=== PATIENT | female | born 1955 | race Caucasian/White ===

== ENCOUNTER → 2017-11-04 13:38 | Outpatient (CLI) | payer OTHER, SELFPAY ==
--- NOTE | 2017-11-04 13:44 | RAD_ITS ---
STUDY: X-RAY - LEFT HAND, ATTENTION LEFT THUMB. REASON FOR EXAM: Female, 62 years old. Pain at the base of the thumb following injury. TECHNIQUE: 3 view(s) of the finger were obtained. COMPARISON: None. FINDINGS: Normal metacarpal head. Normal metacarpophalangeal joint. Normal proximal phalanx. Normal distal phalanx. Normal distal interphalangeal joint. RAD/Finger(s) Min 2 Views IMPRESSION: Normal x-ray examination of the finger. Electronically Signed: Pato Jennings MD at 14:03 EDT Tel [phone], Service support ,
== END ==
PROVIDERS: Family Provider Family Medicine; PCP Family Medicine; Visit Provider Physician Assistant Surgical
DX: S60.012A Contusion of left thumb without damage to nail, initial encounter (principal); X58.XXXA Exposure to other specified factors, initial encounter; Y93.9 Activity, unspecified; Y92.9 Unspecified place or not applicable; Y99.9 Unspecified external cause status
CPT/HCPCS: 73140

== ENCOUNTER 2018-10-18 16:32 | Emergency (ER) | payer OTHER, SELFPAY ==
--- NOTE | 2018-10-18 16:37 | NURSING ---
1627 STROKE ALERT CALLED 1631 PATIENT HERE
--- NOTE | 2018-10-18 16:38 | EKG12_ITS ---
Test Reason : NEURO Blood Pressure : / mmHG Vent. Rate : 061 BPM Atrial Rate : 061 BPM P-R Int : 176 ms QRS Dur : 090 ms QT Int : 424 ms P-R-T Axes : 061 064 -43 degrees QTc Int : 426 ms Normal sinus rhythm Nonspecific T wave abnormality Abnormal ECG Confirmed by ANDREI VEGA, ANICETO ([id number]), newspaper photo editor CHARLIE RIVAS ([id number]) on 10/21/2018 1:43:41 PM Referred By: LAN Confirmed By:ANICETO FORBES MD
--- NOTE | 2018-10-18 16:38 | CT_ITS ---
STUDY: CT BRAIN WITHOUT CONTRAST REASON FOR EXAM: Female, 63 years old. Right-sided weakness RADIATION DOSAGE (If Supplied By Facility): CTDIvol = ( 44.99 ) mGy, DLP = ( 745.49 ) mGycm TECHNIQUE: Transaxial CT imaging of the brain was performed without administration of intravenous contrast material. Individualized dose optimization techniques were used for this CT. COMPARISON: No relevant priors. FINDINGS: Normal soft tissue structures. Normal calvarium. There is hyperdense left middle cerebral artery sign. There is mild hypodensity left frontal and parietal lobe white matter. There is artifact versus a small hypodensity right centrum semiovale region. Normal brainstem. Normal cerebellum. There is no intracranial hemorrhage. Normal visualized paranasal sinuses. CT/Brain/Head without Contrast IMPRESSION: Hyperdense left MCA sign which has high association with acute MCA stroke Mild hypodensity left frontal parietal lobe white matter which could represent acute stroke, ischemic changes, MRI brain follow-up could be performed to further evaluate Mild ischemic changes versus artifact right centrum semiovale There is also called to and discussed with Physician: Stephanie Saucedo at approximately 4:59 PM 10/18/2018. N.B. : The above information has been verbally conveyed by Khoa Flood to Stephanie Saucedo MD, , on 10/18/2018 17:04:23 (ET). Electronically Signed: Khoa Flood, at 17:06 EDT Tel , Service support ,
--- NOTE | 2018-10-18 16:44 | NURSING ---
NEUROLOGY FOR DR MONTENEGRO
--- NOTE | 2018-10-18 16:47 | CT_ITS ---
STUDY: CTA OF THE BRAIN REASON FOR EXAM: Female, 63 years old. Acute stroke RADIATION DOSAGE (If Supplied By Facility): CTDIvol = ( 17.07 ) mGy, DLP = ( 634.79 ) mGycm TECHNIQUE: CT angiography was performed with a multi-detector CT scanner. Data acquisition was obtained from the skull base through the vertex following intravenous administration of 100CC IV Isovue 370. MIP images were reconstructed from the axial data set. Post-processing of the angiographic images was performed, with multiplanar reformation and 3D reconstruction. Individualized dose optimization techniques were used for this CT. COMPARISON: None. FINDINGS: Normal right petrous carotid arteries. Mild atheromatous narrowing right cavernous carotid artery with a normal supraclinoid bifurcation. There is occlusion of the left internal carotid artery.. Normal right A1 segments of the anterior cerebral artery. Normal left A1 segments of the anterior cerebral artery. Normal intact anterior communicating artery (ACOM). Normal bilateral A2 segments of the anterior cerebral arteries. Normal right M1 and M2 segments of the middle cerebral arteries, with a normal M1 bifurcation. There is minimal flow within the very proximal left middle cerebral artery likely due to collateral flow with more occlusion distally. There is some more distal collateral flow within the M3 segment. Normal right posterior communicating artery (PCOM). Normal left posterior communicating artery (PCOM). Normal bilateral vertebral arteries. Normal basilar artery with a normal basilar bifurcation. The visualized bilateral superior cerebellar (SCA) arteries are normal. Normal bilateral P1, P2 and visualized P3 segments of the posterior cerebral arteries. There is no demonstrated aneurysm of the [place]. IMPRESSION: Occlusion left internal carotid artery minimal flow within the very proximal left middle cerebral artery likely due to collateral flow with more occlusion distally. There is some more distal collateral flow within the M3 segment. Mild atheromatous narrowing of the cavernous and supraclinoid portions of the right internal carotid Electronically Signed: Khoa Flood, at 18:09 EDT Tel , Service support , STUDY: CTA NECK WITH CONTRAST REASON FOR EXAM: Female, 63 years old. CVA RADIATION DOSAGE (If Supplied By Facility): CTDIvol = ( 17.07 ) mGy, DLP = ( 634.79 ) mGycm TECHNIQUE: CT angiography with multi-detector data acquisition was performed from the aortic arch to the skull base following intravenous administration of 100CC IV Isovue 370. MIP images were reconstructed from the axial data set. Post-processing of the angiographic images was performed, with multiplanar reformation and 3D reconstruction. Individualized dose optimization techniques were used for this CT. COMPARISON: None. FINDINGS: AORTIC ARCH: Normal visualized aortic arch. Normal origins of the brachiocephalic, left common carotid, and left subclavian arteries. RIGHT CAROTID ARTERIES: There is mild atheromatous narrowing of the right common carotid artery, and proximal right internal carotid artery and carotid bulb with less than 50% diameter stenosis within the right internal and common carotid carotid arteries.. Normal origin of the right external carotid artery (ECA). LEFT CAROTID ARTERIES: The 60-70% atheromatous narrowing of the mid left common carotid artery. Moderate atherosclerotic plaque in the carotid bulb. There is occlusion of the left internal carotid distal to its origin. Normal origin of the left internal carotid (ICA) artery without a hemodynamically significant stenosis. Normal visualized cervical portion of the left internal carotid artery. Normal origin of the left external carotid artery (ECA). VERTEBRAL ARTERIES: Normal bilateral vertebral arteries. There is 1 cm hypodense right thyroid nodule. There is biapical pulmonary scarring and COPD changes. There are bilateral multiple less than 6 mm pulmonary nodules. There is a Pulmonary nodule in on the inferior field of view right upper lobe incompletely included on the study CT chest follow-up recommended there are multilevel degenerative changes of the thoracic spine. CT/CTA Head W/WO Contrast IMPRESSION: Approximately 60-70% atheromatous narrowing of the mid left common carotid artery, moderate atherosclerotic plaque within the left carotid bulb Occlusion of the left internal carotid artery distal to its origin Mild atheromatous narrowing of the right common carotid artery and proximal right internal carotid artery and carotid bulb with less than 50% diameter stenoses within the right internal and common carotid arteries Hypodense 1 cm right thyroid lobe nodule, thyroid ultrasound follow-up recommended Biapical pulmonary scarring and COPD changes Upper lobe pulmonary nodule, CT chest follow-up recommended Multilevel spondylosis cervical spine Electronically Signed: Khoa Flood, at 18:03 EDT Tel , Service support ,
--- NOTE | 2018-10-18 16:47 | CT_ITS ---
STUDY: CTA OF THE BRAIN REASON FOR EXAM: Female, 63 years old. Acute stroke RADIATION DOSAGE (If Supplied By Facility): CTDIvol = ( 17.07 ) mGy, DLP = ( 634.79 ) mGycm TECHNIQUE: CT angiography was performed with a multi-detector CT scanner. Data acquisition was obtained from the skull base through the vertex following intravenous administration of 100CC IV Isovue 370. MIP images were reconstructed from the axial data set. Post-processing of the angiographic images was performed, with multiplanar reformation and 3D reconstruction. Individualized dose optimization techniques were used for this CT. COMPARISON: None. FINDINGS: Normal right petrous carotid arteries. Mild atheromatous narrowing right cavernous carotid artery with a normal supraclinoid bifurcation. There is occlusion of the left internal carotid artery.. Normal right A1 segments of the anterior cerebral artery. Normal left A1 segments of the anterior cerebral artery. Normal intact anterior communicating artery (ACOM). Normal bilateral A2 segments of the anterior cerebral arteries. Normal right M1 and M2 segments of the middle cerebral arteries, with a normal M1 bifurcation. There is minimal flow within the very proximal left middle cerebral artery likely due to collateral flow with more occlusion distally. There is some more distal collateral flow within the M3 segment. Normal right posterior communicating artery (PCOM). Normal left posterior communicating artery (PCOM). Normal bilateral vertebral arteries. Normal basilar artery with a normal basilar bifurcation. The visualized bilateral superior cerebellar (SCA) arteries are normal. Normal bilateral P1, P2 and visualized P3 segments of the posterior cerebral arteries. There is no demonstrated aneurysm of the [place]. IMPRESSION: Occlusion left internal carotid artery minimal flow within the very proximal left middle cerebral artery likely due to collateral flow with more occlusion distally. There is some more distal collateral flow within the M3 segment. Mild atheromatous narrowing of the cavernous and supraclinoid portions of the right internal carotid Electronically Signed: Khoa Flood, at 18:09 EDT Tel , Service support , STUDY: CTA NECK WITH CONTRAST REASON FOR EXAM: Female, 63 years old. CVA RADIATION DOSAGE (If Supplied By Facility): CTDIvol = ( 17.07 ) mGy, DLP = ( 634.79 ) mGycm TECHNIQUE: CT angiography with multi-detector data acquisition was performed from the aortic arch to the skull base following intravenous administration of 100CC IV Isovue 370. MIP images were reconstructed from the axial data set. Post-processing of the angiographic images was performed, with multiplanar reformation and 3D reconstruction. Individualized dose optimization techniques were used for this CT. COMPARISON: None. FINDINGS: AORTIC ARCH: Normal visualized aortic arch. Normal origins of the brachiocephalic, left common carotid, and left subclavian arteries. RIGHT CAROTID ARTERIES: There is mild atheromatous narrowing of the right common carotid artery, and proximal right internal carotid artery and carotid bulb with less than 50% diameter stenosis within the right internal and common carotid carotid arteries.. Normal origin of the right external carotid artery (ECA). LEFT CAROTID ARTERIES: The 60-70% atheromatous narrowing of the mid left common carotid artery. Moderate atherosclerotic plaque in the carotid bulb. There is occlusion of the left internal carotid distal to its origin. Normal origin of the left internal carotid (ICA) artery without a hemodynamically significant stenosis. Normal visualized cervical portion of the left internal carotid artery. Normal origin of the left external carotid artery (ECA). VERTEBRAL ARTERIES: Normal bilateral vertebral arteries. There is 1 cm hypodense right thyroid nodule. There is biapical pulmonary scarring and COPD changes. There are bilateral multiple less than 6 mm pulmonary nodules. There is a Pulmonary nodule in on the inferior field of view right upper lobe incompletely included on the study CT chest follow-up recommended there are multilevel degenerative changes of the thoracic spine. CT/CTA Neck W/WO Contrast IMPRESSION: Approximately 60-70% atheromatous narrowing of the mid left common carotid artery, moderate atherosclerotic plaque within the left carotid bulb Occlusion of the left internal carotid artery distal to its origin Mild atheromatous narrowing of the right common carotid artery and proximal right internal carotid artery and carotid bulb with less than 50% diameter stenoses within the right internal and common carotid arteries Hypodense 1 cm right thyroid lobe nodule, thyroid ultrasound follow-up recommended Biapical pulmonary scarring and COPD changes Upper lobe pulmonary nodule, CT chest follow-up recommended Multilevel spondylosis cervical spine Electronically Signed: Khoa Flood, at 18:03 EDT Tel , Service support ,
[2018-10-18 16:50] VITALS: BP 120/63; PULSE 60; RESP 18; TEMP 37; O2SAT 100; BMI 25.9
[2018-10-18 17:05] VITALS: BP 99/73; PULSE 63; RESP 18; O2SAT 99
--- NOTE | 2018-10-18 17:15 | RAD_ITS ---
STUDY: X-RAY CHEST REASON FOR EXAM: Female, 63 years old. Short of breath TECHNIQUE: Portable chest COMPARISON: None. FINDINGS: The lungs are clear and expanded. There is no demonstrated pleural abnormality. Normal size heart. Normal mediastinum and marry. Normal visualized pulmonary arteries. Normal visualized aortic arch and descending thoracic aorta. Normal visualized thoracic spine. Normal visualized ribs, clavicles, and shoulders. There is no demonstrated abnormality of the visualized soft tissue structures of the upper abdomen. RAD/Chest 1 View IMPRESSION: Normal x-ray examination of the chest. Electronically Signed: Khoa Flood, at 18:58 EDT Tel , Service support ,
--- NOTE | 2018-10-18 17:15 | ED.VISSUMM ---
- ER Visit Summary Date of Service: 10/18/18 Chief Complaint: Difficulty speaking History of Present Illness: The patient is a 63 F presenting with difficulty speaking. This occurred 25 minutes prior to arrival. Family states that she was doing well and all of a sudden could not speak at 405pm. EMS was called. On EMS arrival she had right arm drift and aphasia. Patient has a history of hypertension, hypercholesteremia, COPD, hypothyroidism. She is not on anticoagulants. No recent surgeries. No history of hemorrhagic stroke. Physical Examination: Vitals are stable. Blood pressure 120/63. Patient is afebrile. Alert no acute distress. HEENT exam is unremarkable. Neck is supple. Lungs are clear and equal bilaterally. Heart is regular rate and rhythm. Abdomen is soft nontender nondistended. Extremities are unremarkable. Skin is warm and dry. NIH 4: 2 for LOC questions, 2 for best language Remainder of exam is unremarkable. Emergency Department Course and Treatment: CT head shows hyperdense left MCA sign which has high association with acute MCA stroke Mild hypodensity left frontal parietal lobe white matter which could represent acute stroke, ischemic changes, MRI brain follow-up could be performed to further evaluate Mild ischemic changes versus artifact right centrum semiovale. TPA was started after discussion with Dr. Serrano. CTA head and neck was obtained and shows left ICA and MCA occlusion. Read by Dr. Serrano. He recommends transfer to tertiary care center. EKG is sinus rate of 61. CBC, chemistries unremarkable. INR is 1.0. Troponin is negative. Discussed with [facility] for transfer per patient's family request. Patient will be transferred to [facility]. Disposition: Transfer [facility] Impression: Acute CVA This note was generated with [employer] dictation software. It may contain incorrect words, spelling, and punctuation that were not noted in review of the chart prior to signing ED Disposition - Plan for ED Patient: Referrals: Bipin Goldsmith MD [Primary Care Provider] -
[2018-10-18 17:18] LABS: Absolute Neutrophil Count 6.2 X10^3/uL (2.0-7.7); Basophil# 0.02 X10^3/uL; Basophil% 0.2 % (0-1); Eosinophil# 0.34 X10^3/uL; Eosinophils% 3.4 % (0-5); Hematocrit 40.3 % (37-47); Lymphocyte % 28.3 % (19-41); Mean Corp Hgb Conc 34.7 g/gl (32-36); Mean Corpuscular Hgb 33.3 pg (27.0-32.0); Mean Corpuscular Volume 95.7 fL (81-99); Mean Platelet Vol. 10.1 fl (6.2-12.0); Monocyte# 0.54 X10^3/uL; Monocyte% 5.5 % (0-10); Neutrophil # 6.17 X10^3/uL (2.7-7.7); Neutrophil % 62.5 % (47-70); Platelet Count 256 K/mm3 (150-450); RBC Distribution Width CV 12.9 % (11.6-14.6); RBC Distribution Width SD 45.1 fl (35.1-43.9); Red Blood Count 4.21 M/mm3 (4.2-5.4); White Blood Count 9.9 K/mm3 (4.4-11.0)
--- NOTE | 2018-10-18 17:18 | NURSING ---
CALLING [facility] FOR TRANSFER.
--- NOTE | 2018-10-18 17:19 | NURSING ---
CALLING [facility]
[2018-10-18 17:20] LABS: POSITIVE COUNT NO; POSITIVE DIFFERENTIAL NO; POSITIVE MORPHOLOGY NO
[2018-10-18 17:26] LABS: Prothrombin Time (Protime)PT. 13.1 SECONDS (11.7-14.9)
[2018-10-18 17:27] LABS: Partial Thromboplast Time 28.8 Seconds (24.1-36.2)
[2018-10-18 17:30] VITALS: BP 128/61; PULSE 62; RESP 12; O2SAT 99
[2018-10-18 17:30] LABS: Anion Gap 6 (5-15); BUN 7 mg/dL (7-18); BUN/Creat Ratio 9.6 RATIO (10-20); Calcium,Total 8.3 mg/dL (8.5-10.1); Chloride 103 mmol/L (98-107); Creatinine, Serum 0.73 mg/dL (0.55-1.02); EST Glomerular Filtration Rate 87 mL/min (>60); Est Glom Filt Rate - Afr Amer 105 mL/min (>60); Estimated Creatinine Clearance 66.95 ml/min; Glucose 85 mg/dL (74-106); Potassium 3.2 mmol/L (3.5-5.1); Sodium Level 139 mmol/L (136-145)
[2018-10-18] MEDS: 0.9% Normal Saline 1,000 ML 100 ML IV (17:30)
[2018-10-18 17:45] VITALS: BP 133/70; PULSE 62; RESP 16; TEMP 36.9; O2SAT 99
[2018-10-18 18:00] VITALS: BP 132/77; PULSE 62; RESP 18; O2SAT 98
[2018-10-18 18:22] VITALS: BP 132/77
--- NOTE | 2018-10-18 18:31 | ED.RN ---
1718 pt shaking head yes to on blood thinners and having irregular heart rate. pt shaking head yes to every questions ex: are you able to speak?. attempting to verify blood thinner for TPA use. Cherry TERRELL called [facility] no anticoagulation noted in last 5 yrs. 1720 pt back from CTA. stock catheter placed. second iv attemptsx2 failed attempts. 1728 2nd iv established. 1602 [facility] arrived and assumed care at 1605. NIH completed at bedside with [facility] physician. tpa transported with patient. 1612 [facility] assumed full care of patient at this time. RN call report to anton at [facility].
[2018-10-19 09:41] LABS: Bedside Glucose 89 mg/dL (70-110)
== END 2018-10-18 18:17 | disposition short-term general hospital (02) ==
PROVIDERS: Emergency Provider Emergency Medicine; Family Provider Family Medicine; PCP Family Medicine
DX: I63.512 Cerebral infarction due to unspecified occlusion or stenosis of left middle cerebral artery (principal); I63.232 Cerebral infarction due to unspecified occlusion or stenosis of left carotid arteries; R47.01 Aphasia; G83.21 Monoplegia of upper limb affecting right dominant side; R29.704 NIHSS score 4; J44.9 Chronic obstructive pulmonary disease, unspecified; I10 Essential (primary) hypertension; E78.00 Pure hypercholesterolemia, unspecified; E03.9 Hypothyroidism, unspecified; Z72.0 Tobacco use; Z79.899 Other long term (current) drug therapy
CPT/HCPCS: 70450; 70496; 70498; 71045; 80048; 82962; 84484; 85025; 85610; 85730; 93005; 96361; 96374; 99285; J2997; J7030; J7050; Q9967; A4216; J3490

== ENCOUNTER → 2018-11-20 20:00 | Outpatient (CLI) | payer OTHER, SELFPAY ==
[2018-11-20] MEDS: Zolpidem Tartrate 5 MG Tablet PO (21:55)
== END ==
PROVIDERS: Family Provider Family Medicine; PCP Family Medicine; Referring Provider Family Medicine; Visit Provider Family Medicine
DX: G47.10 Hypersomnia, unspecified (principal); R06.83 Snoring; Z86.73 Personal history of transient ischemic attack (TIA), and cerebral infarction without residual deficits
CPT/HCPCS: 95810

== ENCOUNTER 2019-01-02 00:56 | Emergency (ER) | payer OTHER, SELFPAY ==
[2018-12-04 09:49] VITALS: BMI 25.8
[2019-01-02] VITALS (7 sets, daily range): BP systolic 111–210; BP diastolic 47–102; PULSE 62–87; RESP 13–20; TEMP 36.9; O2SAT 96–100; BMI 28.2
--- NOTE | 2019-01-02 01:00 | ED.RN ---
Addendum entered by Maricruz Cole 01/02/19 01:39: suction at bedside. attempting iv access. new orders. will continue to monitor. Original Note: patient with focal seizure. patient with right facial and right leg twitch. dr. rutledge to bedside.
--- NOTE | 2019-01-02 01:05 | CT_ITS ---
STUDY: CT BRAIN WITHOUT CONTRAST REASON FOR EXAM: Female, 63 years old. Seizure facial twitching weakness recent stroke RADIATION DOSAGE (If Supplied By Facility): CTDIvol = ( 44.99 ) mGy, DLP = ( 1625.96 ) mGycm TECHNIQUE: Transaxial CT imaging of the brain was performed without administration of intravenous contrast material. Additional artifact limits this study. Individualized dose optimization techniques were used for this CT. COMPARISON: October 18, 2018 CT head FINDINGS: Normal soft tissue structures. Normal calvarium. There is mild cerebral atrophy with widening of the extra-axial spaces and ventricular dilatation. Focal low attenuation within the medial aspect of the left side temporal lobe as well as extending into the caudate and left side basal ganglia. There is subcortical low attenuation compatible with evolving left temporal ischemic change. Normal brainstem. There is mild cerebellar atrophy. There is no intracranial hemorrhage. There are no findings of an acute ischemic infarction. Normal visualized paranasal sinuses. CT/Brain/Head without Contrast IMPRESSION: Visualization of low-attenuation and early encephalomalacia within the left temporal and basal ganglia compatible with recent and probably evolving brain parenchyma status post infarct. No evidence of new or acute hemorrhage. Electronically Signed: Corry Elliott MD at 2:41 EDT Tel , Service support ,
[2019-01-02 01:06] LABS: Bedside Glucose 108 mg/dL (70-110)
--- NOTE | 2019-01-02 01:06 | ED.VIS.GEN ---
History of Present Illness Chief Complaint: Neuro S/Sx Informant: Patient, Family Narrative: She stated her face started twitching on the right side uncontrollably 15 minutes ago. She felt dizzy beforehand. She was seen 3 weeks ago and transferred to [facility] for a left-sided stroke. She had a stent placed in her left carotid. She was just discharged from [facility] a few days ago. She does not have any residual neurologic deficits. She is on no seizure medications. She is never had a seizure before. It is only involving her face. She was able to ambulate in here. Denies any other complaints. Current severity is moderate. Worsened by nothing. Relieved by nothing. No home treatment. She was discharged to stop her blood pressure medications. Because her blood pressures were low in the hospital. She restarted her blood pressure medicines today however - Past Medical History (1) Contusion of left thumb without damage to nail, initial encounter Status: Acute (2) Dyspnea on exertion Status: Acute (3) MANOHAR (obstructive sleep apnea) Status: Acute Comment: AHI 29.9 events per hour on original polysomnogram (4) Strain of thumb, left Status: Acute (5) COPD (chronic obstructive pulmonary disease) Status: Chronic (6) Nicotine addiction Status: Chronic Past Medical History - Allergies and Home Meds Allergies/Adverse Reactions: Allergies No Known Allergies Allergy (Verified 01/02/19 01:02) Primary Care Physician: Bipin Goldsmith MD [Primary Care Provider] - Prior records reviewed: Yes Past Medical History: - - See problem list, stroke Surgical History: - - Reviewed Smoking Status: Former smoker Alcohol: None Drugs: None Review of Systems General: Denies: Chills, Fever, Sweats Eyes: Denies: Visual changes - bilaterally, Diplopia ENT: Denies: Rhinorrhea, Sore throat Cardiovascular: Denies: Chest pain, Palpitations Respiratory: Denies: Dyspnea, Cough, Dyspnea on exertion Gastrointestinal: Denies: Abdominal pain, Nausea, Vomiting, Diarrhea, Melena, Hematochezia Genitourinary: Denies: Dysuria, Hematuria, Frequency Musculoskeletal: Denies: Back pain, Extremity Pain Skin: Denies: Rash, Wounds Neurological: Denies: Headache, Weakness, Parasthesia, Numbness Physical Exam Vital Signs/Narrative: Vital Signs Temp Pulse Resp BP Pulse Ox 01/02/19 01:03 20 H 01/02/19 00:57 98.5 F 87 18 210/102 H 96 General: Well nourished, Well developed, No Acute Distress Head: Normocephalic, Atraumatic Eyes: Perrl, EOMI ENT: Moist mucous membranes, No rhinorrhea Neck: Supple, Nontender Cardiovascular: Regular rate, Regular rhythm, No murmurs Respiratory: No distress, CTA bilaterally, Chest nontender Abdomen: Soft, Nontender, Nondistended, Normal bowel sounds Back: Nontender, Normal Inspection Extremities: Nontender, No edema Skin: Normal color, No rash Neurological: Alert, Oriented x3, Normal Strength, Normal Sensation, - - Patient having a focal seizure on the right side of her face. This involves her upper and lower face. Positive twitching. Negative for: Cranial nerves II-XII grossly intact Psychological: Normal affect, Normal Mood Diagnostic/Tx/Re-eval - Medical Decision Making IV established patient given Ativan immediately. Given IV fluids. Lab work and CT had obtained lab work shows nothing acute. CT shows old stroke area with no acute hemorrhage or abnormality. Patient given a dose of Versed initially IM because we could not establish an IV. Then given sequential doses of Ativan and she still had mild right facial seizure. Patient given a dose of Dilantin. This stopped her seizures. She is sleeping comfortably. She is on nasal cannula oxygen due to the fact that she is sedated with medication. At this time she had a post stroke seizure. She will be referred to tertiary care hospital. We do not have neurology coverage. Discussed with hospitalist - Critical Care Time Critical care time (excluding procedures): 30-74 minutes ED Disposition - Plan for ED Patient: Diagnosis: Seizure Referrals: Bipin Goldsmith MD [Primary Care Provider] -
[2019-01-02] MEDS: Midazolam 2 MG/2 ML Syringe IM (01:12)
[2019-01-02] MEDS: LORazepam 2 MG/ML Syringe IV ×3 (01:17→01:34)
--- NOTE | 2019-01-02 01:26 | ED.RN ---
patient continues to seize. dr. rutledge at bedside. new orders. will continue to monitor.
[2019-01-02 01:28] LABS: Absolute Lymphocyte Count 2.97 X10^3/uL (0.83-4.51); Absolute Neutrophil Count 5.4 X10^3/uL (2.0-7.7); Basophil# 0.04 X10^3/uL; Basophil% 0.4 % (0-1); Eosinophil# 0.24 X10^3/uL; Eosinophils% 2.5 % (0-5); Hematocrit 34.7 % (37-47); Hemoglobin 11.8 g/dL (12.0-15.0); Lymphocyte # 2.97 X10^3/ul (4.0); Lymphocyte % 31.4 % (19-41); Mean Corpuscular Hgb 32.7 pg (27.0-32.0); Mean Corpuscular Volume 96.1 fL (81-99); Mean Platelet Vol. 9.4 fl (6.2-12.0); Monocyte% 8.4 % (0-10); NRBC Flagged by Analyzer 0 % (0-5); Neutrophil # 5.37 X10^3/uL (2.7-7.7); Neutrophil % 56.8 % (47-70); Platelet Count 231 K/mm3 (150-450); RBC Distribution Width CV 12.4 % (11.6-14.6); RBC Distribution Width SD 42.8 fl (35.1-43.9); Red Blood Count 3.61 M/mm3 (4.2-5.4); White Blood Count 9.5 K/mm3 (4.4-11.0)
[2019-01-02 01:33] LABS: International Normalized Ratio 1.1; Prothrombin Time (Protime)PT. 13.6 SECONDS (11.7-14.9)
[2019-01-02 01:34] LABS: Partial Thromboplast Time 29.5 Seconds (24.1-36.2)
[2019-01-02 01:44] LABS: Anion Gap 6 (5-15); BUN 4 mg/dL (7-18); BUN/Creat Ratio 4.6 RATIO (10-20); Calcium,Total 8.7 mg/dL (8.5-10.1); Chloride 105 mmol/L (98-107); Creatinine, Serum 0.87 mg/dL (0.55-1.02); EST Glomerular Filtration Rate 70 mL/min (>60); Est Glom Filt Rate - Afr Amer 85 mL/min (>60); Estimated Creatinine Clearance 53.71 ml/min; Glucose 118 mg/dL (74-106); Sodium Level 141 mmol/L (136-145)
--- NOTE | 2019-01-02 02:15 | ED.RN ---
SEIZURE STOPPED. OXYGEN SATURATION REMAINED ABOVE 95%.
--- NOTE | 2019-01-02 03:47 | ED.RN ---
spoke with martha lopez at this time to sent up transport and acceptance of patient
--- NOTE | 2019-01-02 04:33 | ED.RN ---
REPORT CALLED TO XANDER BALDERAS
--- NOTE | 2019-01-02 04:51 | ED.RN ---
EMS IN ED.
== END 2019-01-02 04:55 | disposition short-term general hospital (02) ==
PROVIDERS: Emergency Provider Emergency Medicine; Family Provider Family Medicine; PCP Family Medicine
DX: R56.9 Unspecified convulsions (principal); Z86.73 Personal history of transient ischemic attack (TIA), and cerebral infarction without residual deficits; J44.9 Chronic obstructive pulmonary disease, unspecified; G47.33 Obstructive sleep apnea (adult) (pediatric); Z79.899 Other long term (current) drug therapy; Z87.891 Personal history of nicotine dependence
CPT/HCPCS: 70450; 80048; 82962; 85025; 85610; 85730; 96365; 96372; 96375; 99285; J7040; A4216

== ENCOUNTER → 2019-03-04 11:06 | Outpatient (CLI) | payer OTHER, SELFPAY ==
[2019-01-02 04:09] VITALS: BMI 28.2
[2019-03-04 11:44] LABS: Hematocrit 32.8 % (37-47); Hemoglobin 11.7 g/dL (12.0-15.0); Mean Corp Hgb Conc 35.7 g/dL (32-36); Mean Corpuscular Hgb 30.7 pg (27.0-32.0); Mean Corpuscular Volume 86.1 fL (81-99); Mean Platelet Vol. 9.2 fl (6.2-12.0); Platelet Count 210 K/mm3 (150-450); RBC Distribution Width CV 11.9 % (11.6-14.6); RBC Distribution Width SD 37.5 fl (35.1-43.9); Red Blood Count 3.81 M/mm3 (4.2-5.4); White Blood Count 5.1 K/mm3 (4.4-11.0)
[2019-03-04 12:35] LABS: ALB/GLOB Ratio 1.3 RATIO (0.9-2.4); AST(SGOT) 19 U/L (15-37); Alanine Aminotransfer ALT/SGPT 29 U/L (13-56); Albumin, Serum 3.9 g/dL (3.2-5.0); Alkaline Phosphatase 86 U/L (45-117); Anion Gap 8 (5-15); BUN 3 mg/dL (7-18); BUN/Creat Ratio 5.2 RATIO (10-20); Calcium,Total 8.8 mg/dL (8.5-10.1); Chloride 81 mmol/L (98-107); Creatinine, Serum 0.57 mg/dL (0.55-1.02); EST Glomerular Filtration Rate 114 mL/min (>60); Est Glom Filt Rate - Afr Amer 138 mL/min (>60); Globulin 3.1 g/dL (2.2-4.2); Glucose 92 mg/dL (74-106); Potassium 3.5 mmol/L (3.5-5.1); Sodium Level 117 mmol/L (136-145)
[2019-03-07 13:28] LABS: KEPPRA (LEVETIRACETAM) 64.7 ug/mL (10.0-40.0); Trileptal-Oxcarbazepine 18 ug/mL (10-35)
== END ==
PROVIDERS: Family Provider Family Medicine; PCP Family Medicine
DX: G40.909 Epilepsy, unspecified, not intractable, without status epilepticus (principal)
CPT/HCPCS: 36415; 80053; 80177; 82542; 85027

== ENCOUNTER 2019-04-29 17:20 | Emergency (ER) | payer OTHER, SELFPAY ==
[2019-01-02 04:09] VITALS: BMI 28.2
[2019-04-29] VITALS (8 sets, daily range): BP systolic 169–226; BP diastolic 89–123; PULSE 73–90; RESP 12–22; TEMP 37.1; O2SAT 94–99; BMI 26.2
--- NOTE | 2019-04-29 17:28 | CT_ITS ---
STUDY: CT BRAIN WITHOUT CONTRAST REASON FOR EXAM: Female, 63 years old. CVA, aphasia, patient had a seizure when coming into CT room. RADIATION DOSAGE (If Supplied By Facility): CTDIvol = ( 44.99 ) mGy, DLP = ( 812.98 ) mGycm TECHNIQUE: Transaxial CT imaging of the brain was performed without administration of intravenous contrast material. Individualized dose optimization techniques were used for this CT. COMPARISON: Head CT dated January 02, 2019 FINDINGS: No change in focal volume loss of the left basal ganglia, frontal lobe, and temporal region either from previous infarction or trauma. Normal size ventricles and extra-axial spaces for the patient's age. Normal white matter tracts of the cerebral hemispheres. Normal thalami. Normal brainstem. Normal cerebellum. There is no intracranial hemorrhage. There are no findings of an acute ischemic infarction. Normal visualized paranasal sinuses. CT/Brain/Head without Contrast IMPRESSION: 1. No change in focal volume loss of the left basal ganglia, frontal lobe, and temporal region either from previous infarction or trauma. N.B. : The above information has been verbally conveyed by Fitz Carrillo MD to Dr. Jose R Moise MD, on 04/29/2019 18:28:31 (ET). Electronically Signed: Fitz Carrillo MD at 18:29 EST , Service support ,
--- NOTE | 2019-04-29 17:28 | CT_ITS ---
We are attempting to reach an attending provider to discuss findings. An addendum with communication details will be sent when the communication is complete. STUDY: CTA HEAD AND NECK WITH CONTRAST REASON FOR EXAM: Female, 63 years old. Stroke RADIATION DOSAGE (If Supplied By Facility): CTDIvol = ( 19.43 ) mGy, DLP = ( 657.39 ) mGycm TECHNIQUE: CT angiography was performed with a multi-detector CT scanner. Data acquisition was obtained from the skull base through the vertex following intravenous administration of IV Isovue 370 100CC. MIP images were reconstructed from the axial data set. Post-processing of the angiographic images was performed, with multiplanar reformation and 3D reconstruction. Individualized dose optimization techniques were used for this CT. COMPARISON: No relevant priors. FINDINGS: Normal bilateral petrous carotid arteries. Mildly calcified right cavernous carotid artery with a normal supraclinoid bifurcation. Mildly calcified left cavernous carotid artery with mild luminal narrowing, less than 50%. Normal right A1 segments of the anterior cerebral artery. Normal left A1 segments of the anterior cerebral artery. Normal intact anterior communicating artery (ACOM). Normal bilateral A2 segments of the anterior cerebral arteries. Normal right M1 and M2 segments of the middle cerebral arteries, with a normal M1 bifurcation. Normal left M1 and M2 segments of the middle cerebral arteries, with a normal M1 bifurcation. Normal right posterior communicating artery (PCOM). Normal left posterior communicating artery (PCOM). Normal bilateral vertebral arteries. Normal basilar artery with a normal basilar bifurcation. The visualized bilateral superior cerebellar (SCA) arteries are normal. Normal bilateral P1, P2 and visualized P3 segments of the posterior cerebral arteries. There is no demonstrated aneurysm of the [place]. AORTIC ARCH: Normal visualized aortic arch. Normal origins of the brachiocephalic, left common carotid, and left subclavian arteries. RIGHT CAROTID ARTERIES: Normal right common carotid artery (CCA). Mild atherosclerotic calcifications of the right common carotid bulb. Normal origin of the right internal carotid (ICA) artery without a hemodynamically significant stenosis. Normal visualized cervical portion of the right internal carotid artery. Normal origin of the right external carotid artery (ECA). LEFT CAROTID ARTERIES: Intraluminal thrombus is noted within the left common carotid artery (CCA) causing 60-70% luminal stenosis. A patent stent is noted extending from the distal common carotid artery through the proximal segment of the left internal carotid artery. Normal origin of the left internal carotid (ICA) artery without a hemodynamically significant stenosis. Normal visualized cervical portion of the left internal carotid artery. Normal origin of the left external carotid artery (ECA). VERTEBRAL ARTERIES: Normal bilateral vertebral arteries. Fibrotic changes of the visualized lungs. CT/CTA Head AND Neck W/ Contrast IMPRESSION: Intraluminal thrombus of the left common carotid artery with approximately with 60-60% luminal narrowing. Patent stent is noted extending from the left common carotid to the left internal carotid artery. Atherosclerotic calcifications at the the right carotid bulb without hemodynamically significant stenosis. Atherosclerotic calcifications with mild luminal narrowing at the cavernous segment of the left internal carotid artery. Electronically Signed: Colten Gill DO at 18:24 EST Tel [phone], Service support ,
--- NOTE | 2019-04-29 17:28 | EKG12_ITS ---
Test Reason : Blood Pressure : / mmHG Vent. Rate : 097 BPM Atrial Rate : 097 BPM P-R Int : 184 ms QRS Dur : 100 ms QT Int : 390 ms P-R-T Axes : 062 076 056 degrees QTc Int : 495 ms Normal sinus rhythm Nonspecific ST abnormality Prolonged QT Abnormal ECG Confirmed by VALERIE VEGA, ISAAK ([id number]), editorial manager CIERRA GRANT ([id number]) on 05/03/2019 9:25:36 AM Referred By: MONICA Confirmed By:JUAN DAVID PADILLA MD
[2019-04-29] MEDS: LORazepam 2 MG/ML Syringe IV (17:38)
[2019-04-29 17:39] LABS: Absolute Lymphocyte Count 2.49 X10^3/uL (0.83-4.51); Absolute Neutrophil Count 4.6 X10^3/uL (2.0-7.7); Basophil# 0.04 X10^3/uL; Basophil% 0.5 % (0-1); Eosinophil# 0.22 X10^3/uL; Eosinophils% 2.7 % (0-5); Hematocrit 35.1 % (37-47); Hemoglobin 12.1 g/dL (12.0-15.0); Lymphocyte # 2.49 X10^3/ul (4.0); Lymphocyte % 30.1 % (19-41); Mean Corp Hgb Conc 34.5 g/dL (32-36); Mean Corpuscular Hgb 30.5 pg (27.0-32.0); Mean Corpuscular Volume 88.4 fL (81-99); Mean Platelet Vol. 8.8 fl (6.2-12.0); Monocyte# 0.85 X10^3/uL; Monocyte% 10.3 % (0-10); NRBC Flagged by Analyzer 0 % (0-5); Neutrophil # 4.63 X10^3/uL (2.7-7.7); Neutrophil % 55.8 % (47-70); Platelet Count 231 K/mm3 (150-450); RBC Distribution Width CV 13.2 % (11.6-14.6); RBC Distribution Width SD 43.3 fl (35.1-43.9); Red Blood Count 3.97 M/mm3 (4.2-5.4); White Blood Count 8.3 K/mm3 (4.4-11.0)
--- NOTE | 2019-04-29 17:40 | CM.ED ---
SOCIAL WORK REASON FOR REFERRAL: STROKE ALERT RESPONDED TO STROKE ALERT. PATIENT WAS IN CT UPON ARRIVAL. PATIENT'S , DAUGHTER AND GRANDDAUGHTER PRESENT. EMOTIONAL SUPPORT PROVIDED AND ALL QUESTIONS ANSWERED. Lotus GAMBLE MSW, [employer] LAYER HELPER.
--- NOTE | 2019-04-29 17:51 | ED.RN ---
1730 - PT SEIZING IN CT 1738 - 2MG IV ATIVAN GIVEN IN CT 1738 - PULSE OX 78% STARTING TO BAG PATIENT 1739 - PULSE OX 94% 1740 - BREATHING ON OWN. PLACED ON O2 VIA N/C 6L/MIN 1744 BP 214/112 1750 BP 1958/101 1753 - RETURNED TO ER ROOM 2
[2019-04-29 17:52] LABS: Partial Thromboplast Time 27.4 Seconds (24.1-36.2); Prothrombin Time (Protime)PT. 12.7 SECONDS (11.7-14.9)
--- NOTE | 2019-04-29 17:56 | RAD_ITS ---
STUDY: X-RAY CHEST REASON FOR EXAM: Female, 63 years old. Stroke, seizure TECHNIQUE: Frontal view COMPARISON: October 18, 2018 FINDINGS: The lungs are expanded. Bilateral diffuse interstitial disease. Possible mild right basilar patchy infiltrate. Normal size heart. Normal mediastinum and marry. Normal visualized pulmonary arteries. Normal visualized aortic arch and descending thoracic aorta. Normal visualized thoracic spine. Normal visualized ribs, clavicles, and shoulders. There is no demonstrated abnormality of the visualized soft tissue structures of the upper abdomen. RAD/Chest 1 View IMPRESSION: Diffuse interstitial prominence bilaterally. Possible right basilar infiltrate. Electronically Signed: Colten Gill DO at 18:31 EST Tel [phone], Service support ,
[2019-04-29] MEDS: levETIRAcetam IV 1,000 MG/100 ML BAG 400 MG IV (17:57)
[2019-04-29 18:04] LABS: Anion Gap 8 (5-15); BUN 5 mg/dL (7-18); BUN/Creat Ratio 8.3 RATIO (10-20); Calcium,Total 8.6 mg/dL (8.5-10.1); Chloride 89 mmol/L (98-107); Creatinine, Serum 0.61 mg/dL (0.55-1.02); EST Glomerular Filtration Rate 107 mL/min (>60); Est Glom Filt Rate - Afr Amer 129 mL/min (>60); Estimated Creatinine Clearance 83.63 ml/min; Glucose 97 mg/dL (74-106); Potassium 3.9 mmol/L (3.5-5.1); Sodium Level 124 mmol/L (136-145)
--- NOTE | 2019-04-29 18:07 | ED.RN ---
UNABLE TO COMPLETE. PT LETHARGIC. WILL OPEN EYES WHEN NAME CALLED
--- NOTE | 2019-04-29 18:19 | ED.DCSUM_ITS ---
- ER Visit Summary Date of Service: 04/29/19 Chief Complaint: Not making sense History of Present Illness: The patient is a 63 F who was grocery shopping with family when she started speaking nonsensically. Her daughter thought she had some right arm weakness but did not notice any other abnormalities. This started suddenly about 15 minutes prior to arrival. She has a history of a prior stroke earlier this year. She also has a history of seizures and hypertension. Family says she is compliant with her medications. She takes aspirin and Plavix among her other medications. They deny any other blood thinners. Physical Examination: Blood pressure 226/123. Otherwise vitals normal. Head and neck atraumatic. Heart regular. Lungs clear. Abdomen soft. NIH stroke scale is 7. She received 3 points because of a aphasia, 2 points because of level of consciousness questions, and 2 points regarding commands. Test Results: EKG showed sinus rhythm at a rate of 97 with a QTC of [address] segment changes. No sign of acute ischemia or infarction pattern. CBC normal. Sodium 124, chloride 89, BUN 5. Coags normal. Troponin normal. CT shows an old stroke. No acute findings. Other imaging is pending at the time of this dictation. Emergency Department Course and Treatment: Patient presents with sudden onset of receptive aphasia. Stroke team was activated. Patient was sent for CT imaging. In CT, she had generalized seizure activity that lasted about 2 minutes. She was treated with Ativan 2 mg IV. Her seizure activity seemed to stop. She was somnolent afterwards and did drop to a pulse ox in the 70s. She was treated with supplemental oxygen and with bag valve mask ventilation briefly. Her oxygen saturations improved. She continued to breathe spontaneously. Her breathing seemed to improve, and her oxygen improved. She was placed on a nasal cannula. She still remained somnolent, but was opening her eyes and making some vocalizations. She did not return to her baseline. CT showed old stroke but nothing acute. CTA is pending. Patient was discussed with neurology at [facility]. They are concerned that this may be a subclinical seizure and the patient will need evaluation for seizures. We do not currently have neurology coverage, and the patient will need EEGs, so the patient will be transferred. Patient was accepted by Dr. Ring and Dr. Allen at [facility] emergency department. Patient was also treated with labetalol 10 mg. Repeat blood pressure was 169/89. Patient is remaining stable. GCS is 10-11. Treatment Plan: As above Disposition: Transfer to [facility] Impression: 1. Receptive aphasia 2. Seizure This note was generated with [employer] dictation software. It may contain incorrect words, spelling, and punctuation that were not noted in review of the chart prior to signing ED Disposition - Plan for ED Patient: Referrals: Bipin Goldsmith MD [Primary Care Provider] -
[2019-04-30 07:11] LABS: Bedside Glucose 108 mg/dL (70-110)
== END 2019-04-29 19:15 | disposition short-term general hospital (02) ==
LOC: ED 17:34
PROVIDERS: Emergency Provider Emergency Medicine; Family Provider Family Medicine; PCP Family Medicine
DX: R47.01 Aphasia (principal); R56.9 Unspecified convulsions; I10 Essential (primary) hypertension; Z79.02 Long term (current) use of antithrombotics/antiplatelets; Z79.82 Long term (current) use of aspirin; Z79.899 Other long term (current) drug therapy; Z86.73 Personal history of transient ischemic attack (TIA), and cerebral infarction without residual deficits
CPT/HCPCS: 70450; 70496; 70498; 71045; 80048; 82962; 84484; 85025; 85610; 85730; 93005; 96365; 96375; 99285; J7030; A4216

== ENCOUNTER 2019-05-17 20:26 | Emergency (ER) | payer OTHER, SELFPAY ==
[2019-04-29 18:01] VITALS: BMI 26.2
[2019-05-17 20:27] VITALS: BP 184/89; PULSE 96; RESP 16; TEMP 36.7; O2SAT 97; BMI 27.9
--- NOTE | 2019-05-17 21:56 | EKG12_ITS ---
Test Reason : DIZZYNESS Blood Pressure : / mmHG Vent. Rate : 083 BPM Atrial Rate : 083 BPM P-R Int : 176 ms QRS Dur : 092 ms QT Int : 402 ms P-R-T Axes : 058 066 036 degrees QTc Int : 472 ms Normal sinus rhythm Normal ECG Confirmed by DEWAYNE VEGA, ANNABEL ([id number]), editor news SADIA LANCASTER ([id number]) on 05/19/2019 11:45:55 AM Referred By: DIVINA Confirmed By:ANNABEL BUCHANAN MD
[2019-05-17 22:30] LABS: Bacteria 0 SEEN /hpf (None Seen); Mucous, Urine 0 SEEN /hpf (<or=2+); Red Blood Cells-Urine 0 SEEN /hpf (0-5); Squamous Epithelial Cells - UA 0 SEEN /hpf (5-10); White Blood Cells 0 SEEN /hpf (0-5)
[2019-05-17 22:38] LABS: Color, Urine Straw (Yellow); Glucose, Dipstick Normal (Normal); Ketone-Dipstick Negative (Negative); Leukocyte Esterase-Dipstick Negative /ul (Negative); Nitrite-Dipstick Negative (Negative); Occult Blood-Urine Negative /ul (Negative); Protein-Dipstick Negative (Negative); Specific Gravity, Urine 1.005 (1.002-1.030); Urine Bilirubin Dipstick Negative (Negative); Urine Clarity Clear (Clear); Urine Urobilinogen Normal (Normal)
[2019-05-17 22:48] LABS: Hematocrit 33.4 % (37-47); Hemoglobin 11.5 g/dL (12.0-15.0); Mean Corp Hgb Conc 34.4 g/dL (32-36); Mean Corpuscular Hgb 31.5 pg (27.0-32.0); Mean Corpuscular Volume 91.5 fL (81-99); Platelet Count 247 K/mm3 (150-450); RBC Distribution Width CV 13.9 % (11.6-14.6); Red Blood Count 3.65 M/mm3 (4.2-5.4); White Blood Count 7.4 K/mm3 (4.4-11.0)
[2019-05-17 23:00] VITALS: BP 170/68; PULSE 80; RESP 16; O2SAT 99
[2019-05-17 23:06] LABS: Anion Gap 5 (5-15); BUN 5 mg/dL (7-18); BUN/Creat Ratio 7.5 RATIO (10-20); Calcium,Total 8.8 mg/dL (8.5-10.1); Chloride 103 mmol/L (98-107); Creatinine, Serum 0.66 mg/dL (0.55-1.02); EST Glomerular Filtration Rate 96 mL/min (>60); Est Glom Filt Rate - Afr Amer 116 mL/min (>60); Glucose 115 mg/dL (74-106); Potassium 4.2 mmol/L (3.5-5.1); Sodium Level 136 mmol/L (136-145)
[2019-05-17] MEDS: 0.9% Normal Saline 1,000 ML 150 ML IV (23:09)
--- NOTE | 2019-05-17 23:20 | ED.DCSUM_ITS ---
- ER Visit Summary Date of Service: 05/17/19 Chief Complaint: [Lightheaded and left-sided neck pain] History of Present Illness: The patient is a 63 F [to the emergency department with multiple complaints today. Patient states that around 6 PM she noted that she had some discomfort in the left side of her neck she described as a mild soreness. Patient states that her blood pressure she noted was more elevated than usual throughout the evening. Patient then had episodes intermittently of feeling lightheaded. While in triage she states that the side of her face became a little bit tingly and lasted about 15 minutes but then resolved. Patient is concerned because she had a stent placed in her left carotid several months ago. Patient had prior stroke. Patient apparently also has history of seizures and she thought she might have a seizure. Patient's last seizure was several weeks ago when she was taken to [facility] from our facility. She was told there that she has 70% stenosis of her stent in her left carotid but no and further intervention was undertaken. When she had the discomfort in her neck tonight she was concerned about her stent and she was worried about possibly having a seizure. Patient feels that maybe she just slept wrong and asked why she is having discomfort in her neck. Comfort in her neck is very mild and describes it as a soreness. Patient is currently on Keppra and Trileptal and has been compliant with her medications. Patient also claims that she has had some urinary frequency. Any fevers.] Physical Examination: [HEENT-PERRLA, EOMI. Cranial nerves II through XII grossly intact. TMs clear. Mucous membranes moist. No adenopathy. She has some mild discomfort over the left sternocleidomastoid. Normal carotid pulses. No masses palpated in the neck. Cardiovascular-regular rate and rhythm without murmur or ectopy Lungs-clear to auscultation, chest wall stable without crepitus or subcu emphysema Abdomen-normoactive bowel sounds, soft, nontender, no rebound or rigidity, no peritoneal signs. Neuro crqs-dguzct-luwf and heel sofia testing within normal limits, negative Romberg, negative for drift, fundi benign NIH stroke scale 0. Extremities-intact ?4, normal range of motion, normal pulses, atraumatic] Test Results: [CBC with differential obtained was normal. Chemistries unremarkable. Urinalysis normal. Troponin was less than 0.015. EKG obtained showed a sinus rhythm with a ventricular rate of 83 bpm with no acute segment changes. Emergency Department Course and Treatment: [At this point I do not feel any imaging is indicated.] Patient and family in agreement. Treatment Plan: Follow-up with primary care physician whom she has scheduled appointment with tomorrow. [] Disposition: [Discharged home in stable condition.] Impression: [Venous-etiology uncertain Neck pain-atraumatic] This note was generated with [employer] dictation software. It may contain incorrect words, spelling, and punctuation that were not noted in review of the chart prior to signing ED Disposition - Plan for ED Patient: Instructions: DIZZINESS, Unk Cause, NECK PAIN, No Trauma Referrals: Bipin Goldsmith MD [Primary Care Provider] - 1 Day
[2019-05-17 23:38] VITALS: BP 171/71; PULSE 74; RESP 16; O2SAT 98
== END 2019-05-17 23:43 | disposition home or self-care (01) ==
LOC: ED 21:59
PROVIDERS: Emergency Provider Emergency Medicine; Family Provider Family Medicine; PCP Family Medicine
DX: R42 Dizziness and giddiness (principal); M54.2 Cervicalgia; I10 Essential (primary) hypertension; J44.9 Chronic obstructive pulmonary disease, unspecified; E03.9 Hypothyroidism, unspecified; Z79.82 Long term (current) use of aspirin; Z79.899 Other long term (current) drug therapy; Z86.73 Personal history of transient ischemic attack (TIA), and cerebral infarction without residual deficits
CPT/HCPCS: 80048; 81001; 84484; 85027; 93005; 96360; 99285; J7030; A4216

== ENCOUNTER → 2025-05-03 | Outpatient (CLI) | payer OTHER, SELFPAY ==
--- NOTE | 2025-05-03 15:25 | RAD_ITS ---
PROCEDURE: LUMBAR SPINE 2 OR 3 VIEWS 05/03/2025 REASON FOR EXAM: NEUROGENIC CLAUDICATION TECHNIQUE: Procedure Code: RADSPLL Modality: DX Procedure: LUMBAR SPINE 2 OR 3 VIEWS COMPARISON: None FINDINGS: Vertebrae: Sacrum is intact without evidence of fracture. SI joints are unremarkable. There are 5 lumbar-type vertebral bodies below last set of paired ribs. The vertebral body heights are within normal limits. There is no spondylolysis. Spondylosis is noted. Discs: Disc space narrowing is noted involving the L3-L4, L4-L5 and L5-S1 levels. Facet hypertrophy is noted. Alignment: There is 2 mm of anterior listhesis of L4 in relationship to L5. There is a levoscoliosis of the upper to mid lumbar spine. Other: Extensive degenerative osteoarthritic changes are noted involving both hips. Arteriosclerotic vascular disease of the aorta is noted. RAD/Lumbar Spine 2 or 3 Views IMPRESSION: Spondylosis of the lumbar spine. Levoscoliosis of the lumbar spine. Degenerative disc disease involving L3-L4, L4-L5 and L5-S1 levels. Arteriosclerotic vascular disease of the aorta. Extensive degenerative changes of both hips. Reading Location: [id number]
== END | disposition home or self-care (01) ==
LOC: RAD 15:19
PROVIDERS: PCP Family Medicine; Referring Provider Physician Assistant; Visit Provider Physician Assistant
DX: I73.9 Peripheral vascular disease, unspecified (principal); M47.816 Spondylosis without myelopathy or radiculopathy, lumbar region
CPT/HCPCS: 72100